=== PATIENT | female | born 1950 | race Caucasian/White ===

== ENCOUNTER 2017-05-05 08:29 | Outpatient (CLI) | payer OTHER ==
[2017-05-05 10:51] LABS: #Eosinphils 0.1 thou/uL (0.0-0.7); #Lymphocytes 1.3 thou/uL (1.20-3.40); #Monocytes 0.5 thou/uL (0.11-0.59); %Basophils 0.8 % (0.0-1.0); %Eosinophils 2.5 % (0.0-10.0); %Lymphocytes 21.9 % (21.0-51.0); %Monocytes 8.9 % (0.0-10.0); Hematocrit 43.4 % (36.0-47.0); Mean Platelet Volume 6.4 fL (7.4-10.4); Red Blood Cell (RBC) Count 4.92 mill/uL (4.20-5.40)
[2017-05-05 11:00] LABS: PTT 28.4 SEC (22.9-36.1); Prothrombin Time 12.7 SEC (12.0-14.7)
[2017-05-05 11:17] LABS: Anion Gap 10 mmol/L (10-20); BUN (Urea Nitrogen) 14 mg/dL (9.8-20.1); Calc. Creatinine Clearance 0 mL/min (70-130); Calcium 9.5 mg/dL (7.8-10.44); Carbon Dioxide 30 mmol/L (23-31); Chloride 106 mmol/L (98-107); Estimated GFR-MDRD 78
[2017-05-05 11:18] LABS: Bilirubin Negative (Negative); Blood, Urine Negative (Negative); Glucose, Urine (Dipstick) Negative (Negative); Ketone, Urine Negative (Negative); Nitrite Negative (Negative); Protein, Urine (Dipstick) Negative (Neg-Trace)
[2017-05-05 11:23] LABS: Bacteria/HPF None Seen HPF (None Seen); Hyaline Casts/LPF 0-3 HYALINE CAST LPF (0-3 Hyaline); Squamous Epithelial None Seen HPF (0-3); WBC/HPF None Seen HPF (0-3)
--- NOTE | 2017-05-05 11:53 | RAD ---
RADIOGRAPH CHEST 2 VIEWS: HISTORY: 67-year-old female for pre-operative clearance. FINDINGS: There is no air space density, pulmonary edema, pleural effusion, pneumothorax, or cardiomegaly. IMPRESSION: No acute cardiopulmonary findings. wilbert POS: [facility]
== END 2017-05-05 08:30 | disposition home or self-care (01) ==
LOC: LABBT 08:29
PROVIDERS: ATTEND Orthopaedic Surgery
DX: Z01.818 Encounter for other preprocedural examination (principal); M17.11 Unilateral primary osteoarthritis, right knee
CPT/HCPCS: 71020; 80048; 81001; 85025; 85610; 85730; 86850; 86900; 86901; 87081; 93005; 93010

== ENCOUNTER 2017-05-05 08:45 | Inpatient (IN) | payer OTHER ==
[2017-05-05 08:41] VITALS: BMI 28.7
[2017-05-12] MEDS ORDERED: Tranexamic Acid 1,000 MG/100 ML BAG ONE ×2 (06:47→09:41)
[2017-05-12] MEDS ORDERED: Vancomycin HCl 1.5 GM in Sodium Chloride 0.9% 250 ML 300 ML IVPB SCH (07:00)
[2017-05-12] MEDS ORDERED: Ondansetron HCl/PF 4 MG/2 ML Vial IVP PRN ×3 (07:14→10:31)
[2017-05-12] MEDS ORDERED: diphenhydrAMINE HCl 25 MG CAP PO PRN (07:14)
[2017-05-12] MEDS ORDERED: Zolpidem Tartrate 5 MG TAB PO PRN ×2 (07:14→08:00)
[2017-05-12] MEDS ORDERED: Acetaminophen 325 MG TAB PO PRN (07:14)
[2017-05-12] MEDS ORDERED: HYDROcodone/Acetaminophen 10/325 mg Tablet PO PRN ×4 (07:14→08:00)
[2017-05-12] MEDS ORDERED: Promethazine HCl 25 MG/ML VIAL IM PRN ×3 (07:14→10:31)
[2017-05-12] MEDS ORDERED: traMADol HCl 50 MG TAB PO PRN ×3 (07:14→08:00)
[2017-05-12] MEDS ORDERED: Fentanyl 100 MCG/2 ML VIAL SLOW IVP PRN ×3 (07:14→08:01)
[2017-05-12] MEDS ORDERED: VENLAFAXINE HCL PO SCH (07:15)
[2017-05-12] MEDS ORDERED: CETIRIZINE HCL PO PRN (07:15)
[2017-05-12] MEDS ORDERED: Tranexamic Acid 1,000 MG in Sodium Chloride 0.9% 100 ML IVPB SCH (07:15)
[2017-05-12] MEDS ORDERED: PSEUDOEPHEDRINE PO PRN (07:15)
[2017-05-12] MEDS ORDERED: Midazolam HCl 2 mg/2 ml Vial ONE (07:21)
[2017-05-12] MEDS ORDERED: Loratadine/Pseudoephedrine 10/240 mg Tablet PO PRN (07:59)
[2017-05-12] MEDS ORDERED: Ropivacaine HCl/PF 250 ML in Premix Bag 1 BAG NERVE BLCK SCH (08:00)
[2017-05-12] MEDS ORDERED: Ondansetron HCl/PF 4 MG/2 ML Vial ONE ×2 (08:07→08:23)
[2017-05-12] MEDS ORDERED: Metoclopramide HCl 10 MG/2 ML VIAL ONE (08:23)
[2017-05-12] MEDS ORDERED: Propofol 200 MG/20 ML VIAL ONE (08:23)
[2017-05-12] MEDS ORDERED: Dexamethasone 20 MG/5 ML VIAL ONE (08:23)
[2017-05-12] MEDS ORDERED: Lidocaine 1% PF 5 ML VIAL ONE (08:23)
[2017-05-12] MEDS ORDERED: OMEPRAZOLE MAGNESIUM PO SCH (09:00)
[2017-05-12] MEDS ORDERED: Non-Formulary Item 1 EACH (Cholecalciferol (Vitamin D3) [Vitamin D3] 2,000 UNIT) PO SCH (09:00)
[2017-05-12] MEDS ORDERED: Fentanyl 100 MCG/2 ML VIAL ONE ×2 (09:53→10:21)
[2017-05-12] MEDS ORDERED: Ropivacaine 0.5% HCl/PF (150 MG/30 ML VIAL) ONE (09:57)
--- NOTE | 2017-05-12 09:59 | OP ---
PREOPERATIVE DIAGNOSIS: Degenerative joint disease of the right knee. 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 SURGEON: Henry Herrera M.D. [employer]ER: Dr. Cobb. BLOOD LOSS: Minimal. SPECIMEN: None. DRAINS: None. COMPLICATIONS: None. TOURNIQUET TIME: 50 minutes. IMPLANTS USED: [place] [employer] 4 femur, 3 tibia, 9 mm CSX3 polyethylene, A29 patella. PROCEDURE IN DETAIL: After informed consent was obtained in the preoperative holding area. The pat ient was taken to the operative suite where general anesthesia was induced. Once adequate level of general anesthesia was obtained, the patient was positioned and a well-padded tourniquet was placed around the right proximal thigh. The right lower extremity was then prepped and draped in the usual sterile fashion. Prior to exsanguination, a time out was called and all members of the surgical te am agreed upon site, surgeon, and patient. The extremity was then exsanguinated and the tourniquet was raised. A midline longitudinal incision was then made directly over the patella extending two f ingerbreadths above the superior pole of the patella and two fingerbreadths inferior to the inferior patellar pole of the patella. Deeper subcutaneous layers were dissected sharply and local bleeding was controlled with Bovie electrocautery. A quad tendon longitudinal split was then made sharply a nd a median parapatellar arthrotomy was carried out both sharp and with Bovie electrocautery, tamera d down to one fingerbreadth medial to the tibial tubercle. The knee was then placed into flexion an d the patella was everted nicely, and a copious fat pad ectomy was performed allowing for greater ex posure of the tibia. The computer-assisted distal femoral fiducial was then placed and pinned firml y, and the distal femoral cutting guide was pinned firmly into place. The oscillating saw was then used to remove the appropriate amount of bone. The 4-in-1 cutting block was then placed on the dist al femur and the oscillating saw was used to remove the appropriate amount of bone off of the anteri or, posterior, and chamfer cuts. After completion of bone cuts, the anterior cruciate ligament was resected sharply and the posterior cruciate ligament retractor was placed and the tibia was subluxed for better exposure. Partial meniscectomies were carried out, and the tibial computer-assisted fid ucial was pinned, and the cutting guide was placed. Oscillating saw was then used to remove the bon e with Hohmann retractors used to take care and protect the collateral ligaments. After the tibial resection was performed, a laminar oxide furnace tender was placed in between the freshened bone cuts. The knee placed at 90 degrees and further bilateral meniscectomies were carried out, and the curved osteotom e and curettage was used to remove any excess bone spurs in the posterior compartment. Exparel was then injected into the posterior capsule, beto-articular synovia, pre-patella synovia, and musculatu re surrounding the capsule. The trial femoral component, tibial baseplate were placed with the appr opriate polyethylene trial insert with an appropriate polyethylene spacer and patellar button. The knee was taken through full range of motion with flexion and extension from 0-90 degrees and patella r broach squarely in the trochlea without any squinting or subluxation noted. The knee was also sta ble to varus and valgus stressing at 0, 15, 45, and 90 degrees of flexion. The drawer was negative. All trial components were then removed and the keel punch was used to provide the appropriate defe ct in the tibia with a mallet. The freshened bone cuts were copiously irrigated with pulsatile lava ge of about 1-1/2 liters to remove all excess debris. The freshened bone cuts were then dried and w ith suction and lap sponge. The knee was placed in flexion and retractors were placed to provide ac cess to all bone cuts. Tobramycin impregnated methyl methacrylate cement was then placed on the dorian shened bone cuts and implants which were malleted firmly into place. Curettage and Arthur elevators were used to remove any excess bone cement. The knee was placed into full extension and the patella r button was placed under compression, and the cement was allowed to cure. Once completed, the comp onents were again taken through full range of motion and copious irrigation of the knee was carried out with another liter of normal saline. All components were inspected fully with full range of mot ion and varus and valgus stressing. There was no laxity noted and full extension was observed clinic ally. Primary closure was accomplished with #2 interrupted Vicryl stitch of the arthrotomy defect. This was oversewn with a #2 running Quill barbed stitch. The gravitational platelet system was the n injected into the arthrotomy prior to closure. The subcutaneous layer was then closed with a runn ing 0 barbed Monocryl stitch and skin closure accomplished with a running subcuticular 3-0 Monocryl barbed Quill stitch and augmented with cement on the skin. Tourniquet was lowered. Good spontaneou s return of distal pulses was noted clinically and a sterile dressing was applied to the incision. The procedure was terminated without any complications. The patient was awakened in the operative s uite and the tourniquet was removed, and the patient was taken to the recovery room in stable condit ion.
[2017-05-12] MEDS ORDERED: Ketorolac Tromethamine 30 MG/ML VIAL ONE (10:24)
[2017-05-12] MEDS ORDERED: Ketorolac Tromethamine 30 MG/ML VIAL IVP PRN (10:31)
[2017-05-12] MEDS ORDERED: Promethazine HCl 25 MG/ML VIAL SLOW IVP PRN (10:31)
--- NOTE | 2017-05-12 10:32 | RAD ---
TWO VIEWS RIGHT KNEE: Date: 05-12-17 History: Post op total knee replacement. FINDINGS: There are post-surgical changes related to right total knee prosthesis. No hardware complication is seen. There is no fracture or dislocation. Subcutaneous emphysema and edema are seen about the knee. IMPRESSION: Post-surgical changes related to recent right total knee replacement. POS: [facility]
[2017-05-12] MEDS ORDERED: Fentanyl 20 MCG/ML 250 ML ONE (10:58)
[2017-05-12] MEDS: Aspirin 325 MG TAB PO SCH ×2 (12:52→19:14)
[2017-05-12] MEDS: Sodium Chloride 0.9% 1,000 ML IV SCH ×2 (12:52→17:01)
--- NOTE | 2017-05-12 13:36 | PDOC.PN ---
- Subjective Encounter Start Date: 05/12/17 Encounter Start Time: 13:34 Pt seen for management of medical comorbidities, including hypertension. Denies chest pain, shortness of breath, fevers or chills. No nausea or vomiting. - Objective MAR Reviewed: Yes Vital Signs & Weight: Vital Signs (12 hours) Temp Pulse Resp BP Pulse Ox 05/12/17 13:29 97.7 F 78 16 157/91 H 98 Weight Weight 178 lb I&O: 05/11/17 05/12/17 05/13/17 06:59 06:59 06:59 Output Total 300 Balance -300 Phys Exam - Physical Examination Constitutional: NAD HEENT: moist MMs Neck: supple Respiratory: clear to auscultation bilateral Cardiovascular: RRR Gastrointestinal: soft Musculoskeletal: pulses present s/p R knee surgery Neurological: moves all 4 limbs Psychiatric: normal affect Skin: no rash Dx/Plan (1) HTN (hypertension) Code(s): I10 - ESSENTIAL (PRIMARY) HYPERTENSION Status: Chronic (2) Hot flashes Code(s): R23.2 - FLUSHING Status: Chronic (3) Osteoarthritis Code(s): M19.90 - UNSPECIFIED OSTEOARTHRITIS, UNSPECIFIED SITE Status: Chronic - Plan * . Monitor vital signs, titrate antihypertensives as needed. PRN IV hydralazine for BP spikes. Continue venlafaxine. s/p R knee surgery. DVT prophylaxis and pain management per orthopedic surgery. Review of Systems - Review of Systems Constitutional: negative: Fever, Chills, Sweats, Weakness, Malaise Respiratory: negative: Cough, Dry, Shortness of Breath, Hemoptysis, SOB with Excertion, Pleuritic Pain, Sputum, Wheezing Cardiovascular: negative: Chest Pain, Palpitations, Orthopnea, Paroxysmal Noc. Dyspnea, Edema, Light Headedness - Medications/Allergies Allergies/Adverse Reactions: Allergies Allergy/AdvReac Type Severity Reaction Status Date / Time adhesive tape Allergy blistering Verified 05/05/17 08:43 pravastatin Allergy myalgia Verified 05/05/17 09:05 Medications: Current Medications Acetaminophen (Tylenol) 650 mg PO Q4H PRN PRN Reason: GRANT/ T > 101F; Mild Pain (1-3) Hydrocodone Bitart/Acetaminophen ([place] 10/325) 1 tab PO Q4H PRN PRN Reason: Moderate Pain (4-6) Hydrocodone Bitart/Acetaminophen ([place] 10/325) 2 tab PO Q4H PRN PRN Reason: Severe Pain (7-10) Hydrocodone Bitart/Acetaminophen ([place] 10/325) 1 tab PO Q4H PRN PRN Reason: Pain (1-3) Hydrocodone Bitart/Acetaminophen ([place] 10/325) 2 tab PO Q4H PRN PRN Reason: PAIN (4-6) Aspirin (Aspirin) 325 mg PO BID [facility] Last Admin: 05/12/17 12:52 Dose: Not Given Benazepril HCl (Lotensin) 20 mg PO HS [facility] Cefazolin Sodium (Ancef) 2 gm SLOW IVP Q8H [facility] Stop: 05/12/17 22:46 Cholecalciferol (Vitamin D3) 2,000 units PO DAILY [facility] Last Admin: 05/12/17 12:52 Dose: Not Given Diphenhydramine HCl (Benadryl) 25 mg PO Q6H PRN PRN Reason: Itching Fentanyl (Sublimaze) 50 mcg SLOW IVP Q30MIN PRN PRN Reason: Moderate Pain (4-6) 2ND LINE Fentanyl (Sublimaze) 100 mcg SLOW IVP Q1H PRN PRN Reason: Severe Pain (7-10) 2ND LINE Fentanyl (Sublimaze) 50 mcg SLOW IVP Q1H PRN PRN Reason: .BREAKTHROUGH PAIN Ferrous Gluconate (Fergon) 324 mg PO BID [facility] Sodium Chloride (Normal Saline 0.9%) 1,000 mls @ 100 mls/hr IV .Q10H [facility] Last Admin: 05/12/17 12:52 Dose: Not Given Ropivacaine 250 ml/ Device 250 mls @ 10 mls/hr NERVE BLCK INF [facility] PRN Reason: As Directed Iron/Minerals/Multivitamins (Theragran M) 1 tab PO DAILY [facility] Ketorolac Tromethamine (Toradol) 30 mg IVP Q8HR [facility] Stop: 05/14/17 14:01 Loratadine/Pseudoephedrine Sulfate (Claritin-D 24 Hour) 1 tab PO DAILYPRN PRN PRN Reason: Allergies Non-Formulary Medication (Venlafaxine Hcl [Venlafaxine Hcl Er]) 1 cap PO Q2DAYS [facility] Ondansetron HCl (Zofran) 4 mg IVP Q6H PRN PRN Reason: Nausea/Vomiting Ondansetron HCl (Zofran) 4 mg IVP Q6H PRN PRN Reason: Nausea/Vomiting Pantoprazole Sodium (Protonix) 40 mg PO QAM [facility] Last Admin: 05/12/17 12:53 Dose: Not Given Promethazine HCl (Phenergan) 12.5 mg IM Q4H PRN PRN Reason: Nausea/Vomiting Promethazine HCl (Phenergan) 12.5 mg IM Q4H PRN PRN Reason: Nausea Senna/Docusate Sodium (Senokot S) 2 tab PO BID [facility] Sodium Chloride (Flush - Normal Saline) 10 ml IVF PRN PRN PRN Reason: Saline Flush Tramadol HCl (Ultram) 100 mg PO Q6H PRN PRN Reason: Mild Pain (1-3) 2ND LINE Tramadol HCl (Ultram) 50 mg PO Q6H PRN PRN Reason: Mild Pain (1-3) Tramadol HCl (Ultram) 100 mg PO Q6H PRN PRN Reason: Moderate Pain 4-6 Zolpidem Tartrate (Ambien) 5 mg PO HSPRN PRN PRN Reason: Insomnia Zolpidem Tartrate (Ambien) 5 mg PO HSPRN PRN PRN Reason: Insomnia
[2017-05-12] MEDS ORDERED: Ketorolac Tromethamine 30 MG/ML VIAL IVP SCH (14:00)
[2017-05-12] MEDS: Ketorolac Tromethamine 30 MG/ML VIAL IVP SCH ×2 (14:48→21:04)
[2017-05-12] MEDS ORDERED: Naloxone HCl 0.4 mg/ml Vial IV PRN (17:05)
[2017-05-12] MEDS ORDERED: Fentanyl 5000 MCG/250 ML CADD IV PRN (17:05)
[2017-05-13] MEDS: Sodium Chloride 0.9% 1,000 ML IV SCH ×2 (01:02→08:10)
[2017-05-13 05:50] LABS: Hematocrit 34.7 % (36.0-47.0); Mean Platelet Volume 6.1 fL (7.4-10.4); Red Blood Cell (RBC) Count 3.93 mill/uL (4.20-5.40); White Blood Cell (WBC) Count 8.5 thou/uL (4.8-10.8)
[2017-05-13] MEDS: Ketorolac Tromethamine 30 MG/ML VIAL IVP SCH ×3 (06:00→21:14)
[2017-05-13] MEDS: Aspirin 325 MG TAB PO SCH ×2 (07:48→21:09)
[2017-05-13] MEDS: Senokot S 8.6-50 MG TAB PO SCH ×2 (07:48→21:10)
[2017-05-13] MEDS: Multivitamin W/ Minerals 1 TAB PO SCH (07:48)
[2017-05-13] MEDS: Ferrous Gluconate 324 MG TAB PO SCH ×2 (07:48→21:09)
--- NOTE | 2017-05-13 10:13 | PDOC.PN ---
- Subjective Encounter Start Date: 05/13/17 Encounter Start Time: 07:50 -: old records requested/rev Patient seen and examined. No new complaints. No overnight events - Objective Resuscitation Status: Resuscitation Status FULL:Full Resuscitation MAR Reviewed: Yes Vital Signs & Weight: Vital Signs (12 hours) Temp Pulse Resp BP Pulse Ox 05/13/17 08:00 98.2 F 78 14 133/79 96 05/13/17 07:35 98.2 F 77 18 05/13/17 04:46 98.2 F 77 18 150/82 H 97 05/13/17 00:07 98.3 F 90 16 137/74 Weight Weight 178 lb I&O: 05/12/17 05/13/17 05/14/17 06:59 06:59 06:59 Intake Total 400 Output Total 1100 Balance -700 Result Diagrams: 05/13/17 05:41 Phys Exam - Physical Examination Constitutional: NAD HEENT: PERRLA, moist MMs, sclera anicteric Neck: no JVD, supple Respiratory: no wheezing, no rales, no rhonchi Cardiovascular: RRR, no significant murmur, no rub Gastrointestinal: soft, non-tender, no distention, positive bowel sounds Musculoskeletal: no edema, pulses present right knee with dressing Neurological: non-focal, normal sensation, moves all 4 limbs Psychiatric: normal affect, A&O x 3 Skin: no rash, normal turgor Dx/Plan (1) Status post total right knee replacement Code(s): Z96.651 - PRESENCE OF RIGHT ARTIFICIAL KNEE JOINT Status: Acute (2) HTN (hypertension) Code(s): I10 - ESSENTIAL (PRIMARY) HYPERTENSION Status: Chronic (3) Osteoarthritis Code(s): M19.90 - UNSPECIFIED OSTEOARTHRITIS, UNSPECIFIED SITE Status: Chronic (4) GERD (gastroesophageal reflux disease) Code(s): K21.9 - GASTRO-ESOPHAGEAL REFLUX DISEASE WITHOUT ESOPHAGITIS Status: Chronic (5) Anxiety and depression Code(s): F41.8 - OTHER SPECIFIED ANXIETY DISORDERS Status: Chronic - Plan cont current plan of care, plan discussed w/ family, PT/OT * continue aspirin for DVT prophyalxis * continue protonix for GI prophylaxis * Nerve block as per anesthesia * pain controlled * discussed with family * medication reviewed as below * symptomatic treatment * Code status- Full code * continue Ferrous sulfate * overall medically stable. Review of Systems - Review of Systems ENT: negative: Ear Pain, Ear Discharge, Nose Pain, Nose Discharge, Nose Congestion, Mouth Pain, Mouth Swelling, Throat Pain, Throat Swelling, Other Respiratory: negative: Cough, Dry, Shortness of Breath, Hemoptysis, SOB with Excertion, Pleuritic Pain, Sputum, Wheezing Cardiovascular: negative: Chest Pain, Palpitations, Orthopnea, Paroxysmal Noc. Dyspnea, Edema, Light Headedness, Other Gastrointestinal: negative: Nausea, Vomiting, Abdominal Pain, Diarrhea, Constipation, Melena, Hematochezia, Other Genitourinary: negative: Dysuria, Frequency, Incontinence, Hematuria, Retention , Other Musculoskeletal: negative: Neck Pain, Shoulder Pain, Arm Pain, Back Pain, Hand Pain, Leg Pain, Foot Pain, Other - Medications/Allergies Allergies/Adverse Reactions: Allergies Allergy/AdvReac Type Severity Reaction Status Date / Time adhesive tape Allergy blistering Verified 05/05/17 08:43 pravastatin Allergy myalgia Verified 05/05/17 09:05 Medications: Current Medications Acetaminophen (Tylenol) 650 mg PO Q4H PRN PRN Reason: GRANT/ T > 101F; Mild Pain (1-3) Last Admin: 05/12/17 19:14 Dose: 650 mg Aspirin (Aspirin) 325 mg PO BID [facility] Last Admin: 05/13/17 07:48 Dose: 325 mg Benazepril HCl (Lotensin) 20 mg PO HS [facility] Last Admin: 05/12/17 19:14 Dose: 20 mg Cholecalciferol (Vitamin D3) 2,000 units PO DAILY [facility] Last Admin: 05/13/17 07:47 Dose: 2,000 units Diphenhydramine HCl (Benadryl) 25 mg PO Q6H PRN PRN Reason: Itching Fentanyl (Fentanyl Cadd) 0 mcg IV INF PRN PRN Reason: Pain Ferrous Gluconate (Fergon) 324 mg PO BID [facility] Last Admin: 05/13/17 07:48 Dose: 324 mg Hydralazine HCl (Apresoline) 10 mg SLOW IVP Q6H PRN PRN Reason: SBP Greater Than 170 Sodium Chloride (Normal Saline 0.9%) 1,000 mls @ 100 mls/hr IV .Q10H [facility] Last Admin: 05/13/17 08:10 Dose: Not Given Ropivacaine 250 ml/ Device 250 mls @ 10 mls/hr NERVE BLCK INF [facility] PRN Reason: As Directed Last Admin: 05/13/17 10:03 Dose: 250 mls Iron/Minerals/Multivitamins (Theragran M) 1 tab PO DAILY [facility] Last Admin: 05/13/17 07:48 Dose: 1 tab Ketorolac Tromethamine (Toradol) 30 mg IVP Q8HR [facility] Stop: 05/14/17 14:01 Last Admin: 05/13/17 06:00 Dose: 30 mg Loratadine/Pseudoephedrine Sulfate (Claritin-D 24 Hour) 1 tab PO DAILYPRN PRN PRN Reason: Allergies Naloxone HCl (Narcan) 0.2 mg IV Q5MIN PRN PRN Reason: RR <8 or pt obtun/unarousable Ondansetron HCl (Zofran) 4 mg IVP Q6H PRN PRN Reason: Nausea/Vomiting Pantoprazole [facility] ([facility]ix) [facility] Last Admin: 05/13/17 07:48 Dose: 40 mg Promethazine HCl (Phenergan) 12.5 mg IM Q4H PRN PRN Reason: Nausea Senna/Docusate Sodium (Senokot S) 2 tab PO BID [facility] Last Admin: 05/13/17 07:48 Dose: 2 tab Sodium Chloride (Flush - Normal Saline) 10 ml IVF PRN PRN PRN Reason: Saline Flush Venlafaxine HCl (Effexor Xr) 37.5 mg PO Q48H [facility] Last Admin: 05/12/17 19:58 Dose: 37.5 mg Zolpidem Tartrate (Ambien) 5 mg PO HSPRN PRN PRN Reason: Insomnia
[2017-05-14] MEDS: Sodium Chloride 0.9% 1,000 ML IV SCH ×2 (02:25→09:28)
[2017-05-14 05:07] LABS: Hematocrit 39.7 % (36.0-47.0); Mean Platelet Volume 6.2 fL (7.4-10.4); Red Blood Cell (RBC) Count 4.37 mill/uL (4.20-5.40); White Blood Cell (WBC) Count 8.5 thou/uL (4.8-10.8)
[2017-05-14] MEDS: Ketorolac Tromethamine 30 MG/ML VIAL IVP SCH ×2 (06:31→14:05)
[2017-05-14] MEDS: Ferrous Gluconate 324 MG TAB PO SCH (09:30)
[2017-05-14] MEDS: Aspirin 325 MG TAB PO SCH (09:30)
[2017-05-14] MEDS: Multivitamin W/ Minerals 1 TAB PO SCH (09:30)
[2017-05-14] MEDS: Senokot S 8.6-50 MG TAB PO SCH (09:31)
--- NOTE | 2017-05-14 10:13 | PDOC.PN ---
- Subjective Encounter Start Date: 05/14/17 Encounter Start Time: 07:50 Patient seen and examined. No new complaints. No overnight events - Objective Resuscitation Status: Resuscitation Status FULL:Full Resuscitation MAR Reviewed: Yes Vital Signs & Weight: Vital Signs (12 hours) Temp Pulse Resp BP Pulse Ox 05/14/17 08:00 98.7 F 86 18 05/14/17 04:10 98.7 F 86 18 147/85 H 97 05/14/17 00:44 98.4 F 81 18 134/88 94 L Weight Admit Weight 178 lb Weight 178 lb I&O: 05/13/17 05/14/17 05/15/17 06:59 06:59 06:59 Intake Total 400 2760 Output Total 1100 4400 Balance -700 -1640 Result Diagrams: 05/14/17 04:50 Phys Exam - Physical Examination Constitutional: NAD HEENT: PERRLA, moist MMs, sclera anicteric Neck: no JVD, supple Respiratory: no wheezing, no rales, no rhonchi Cardiovascular: RRR, no significant murmur, no rub Gastrointestinal: soft, non-tender, no distention, positive bowel sounds Musculoskeletal: no edema, pulses present Neurological: non-focal, normal sensation, moves all 4 limbs Psychiatric: normal affect, A&O x 3 Skin: no rash, normal turgor Dx/Plan (1) Status post total right knee replacement Code(s): Z96.651 - PRESENCE OF RIGHT ARTIFICIAL KNEE JOINT Status: Acute (2) HTN (hypertension) Code(s): I10 - ESSENTIAL (PRIMARY) HYPERTENSION Status: Chronic (3) Osteoarthritis Code(s): M19.90 - UNSPECIFIED OSTEOARTHRITIS, UNSPECIFIED SITE Status: Chronic (4) GERD (gastroesophageal reflux disease) Code(s): K21.9 - GASTRO-ESOPHAGEAL REFLUX DISEASE WITHOUT ESOPHAGITIS Status: Chronic (5) Anxiety and depression Code(s): F41.8 - OTHER SPECIFIED ANXIETY DISORDERS Status: Chronic - Plan cont current plan of care, PT/OT * continue aspirin for DVT prophyalxis * continue protonix for GI prophylaxis * Nerve block as per anesthesia * pain controlled * discussed with family * medication reviewed as below * symptomatic treatment * Code status- Full code * continue Ferrous sulfate * overall medically stable. * plan for discharge today * will sign off.. Review of Systems - Review of Systems Respiratory: negative: Cough, Dry, Shortness of Breath, Hemoptysis, SOB with Excertion, Pleuritic Pain, Sputum, Wheezing Cardiovascular: negative: Chest Pain, Palpitations, Orthopnea, Paroxysmal Noc. Dyspnea, Edema, Light Headedness, Other Gastrointestinal: negative: Nausea, Vomiting, Abdominal Pain, Diarrhea, Constipation, Melena, Hematochezia, Other Genitourinary: negative: Dysuria, Frequency, Incontinence, Hematuria, Retention , Other Musculoskeletal: negative: Neck Pain, Shoulder Pain, Arm Pain, Back Pain, Hand Pain, Leg Pain, Foot Pain, Other - Medications/Allergies Allergies/Adverse Reactions: Allergies Allergy/AdvReac Type Severity Reaction Status Date / Time adhesive tape Allergy blistering Verified 05/05/17 08:43 pravastatin Allergy myalgia Verified 05/05/17 09:05 Medications: Current Medications Acetaminophen (Tylenol) 650 mg PO Q4H PRN PRN Reason: GRANT/ T > 101F; Mild Pain (1-3) Last Admin: 05/12/17 19:14 Dose: 650 mg Aspirin (Aspirin) 325 mg PO BID [facility] Last Admin: 05/14/17 09:30 Dose: 325 mg Benazepril HCl (Lotensin) 20 mg PO HS [facility] Last Admin: 05/13/17 21:09 Dose: 20 mg Cholecalciferol (Vitamin D3) 2,000 units PO DAILY [facility] Last Admin: 05/14/17 09:30 Dose: 2,000 units Diphenhydramine HCl (Benadryl) 25 mg PO Q6H PRN PRN Reason: Itching Fentanyl (Fentanyl Cadd) 0 mcg IV INF PRN PRN Reason: Pain Ferrous Gluconate (Fergon) 324 mg PO BID [facility] Last Admin: 05/14/17 09:30 Dose: 324 mg Hydralazine HCl (Apresoline) 10 mg SLOW IVP Q6H PRN PRN Reason: SBP Greater Than 170 Sodium Chloride (Normal Saline 0.9%) 1,000 mls @ 100 mls/hr IV .Q10H [facility] Last Admin: 05/14/17 09:28 Dose: Not Given Ropivacaine 250 ml/ Device 250 mls @ 10 mls/hr NERVE BLCK INF [facility] PRN Reason: As Directed Last Admin: 05/13/17 10:03 Dose: 250 mls Iron/Minerals/Multivitamins (Theragran M) 1 tab PO DAILY [facility] Last Admin: 05/14/17 09:30 Dose: 1 tab Ketorolac Tromethamine (Toradol) 30 mg IVP Q8HR [facility] Stop: 05/14/17 14:01 Last Admin: 05/14/17 06:31 Dose: 30 mg Loratadine/Pseudoephedrine Sulfate (Claritin-D 24 Hour) 1 tab PO DAILYPRN PRN PRN Reason: Allergies Naloxone HCl (Narcan) 0.2 mg IV Q5MIN PRN PRN Reason: RR <8 or pt obtun/unarousable Ondansetron HCl (Zofran) 4 mg IVP Q6H PRN PRN Reason: Nausea/Vomiting Pantoprazole Sodium (Protonix) 40 mg PO QAM [facility] Last Admin: 05/14/17 09:30 Dose: 40 mg Promethazine HCl (Phenergan) 12.5 mg IM Q4H PRN PRN Reason: Nausea Senna/Docusate Sodium (Senokot S) 2 tab PO BID [facility] Last Admin: 05/14/17 09:31 Dose: 2 tab Sodium Chloride (Flush - Normal Saline) 10 ml IVF PRN PRN PRN Reason: Saline Flush Venlafaxine HCl (Effexor Xr) 37.5 mg PO Q48H [facility] Last Admin: 05/12/17 19:58 Dose: 37.5 mg Zolpidem Tartrate (Ambien) 5 mg PO HSPRN PRN PRN Reason: Insomnia
--- NOTE | 2017-05-14 11:27 | DIS ---
DATE OF ADMISSION: 05/12/2017 DATE OF DISCHARGE: 05/14/2017 PRIMARY CARE PHYSICIAN: Judy Bustillo M.D. DISCHARGE DISPOSITION: Home. PRIMARY DISCHARGE DIAGNOSIS: Status post right total knee replacement. SECONDARY DISCHARGE DIAGNOSES: Anxiety and depression, gastroesophageal reflux disease, hypertensio n, and osteoarthritis. PRIMARY PROCEDURE/OPERATION: Right total knee replacement. RADIOLOGICAL INVESTIGATION: Knee x-ray. SIGNIFICANT LABORATORY DATA: Hemoglobin 0.7. DISCHARGE MEDICATIONS: Aspirin 325 mg p.o. b.i.d., benazepril 20 mg p.o. at bedtime, cetirizine one tablet p.o. daily p.r.n., vitamin D3 2000 units p.o. daily, venlafaxine ER 1 capsule p.o. every 2 d ays, omeprazole 20 mg p.o. daily. CONTRAINDICATIONS: None. CODE STATUS: FULL CODE. INPATIENT PERLITE GRINDER: Dr. Javier Figueroa was primary while in hospital. Sound Team was consulted for medical comanagement. ALLERGIES: PRAVASTATIN. DISCHARGE PLAN: Post hospital, the patient will follow up with Dr. Javier Figueroa on 06/10/2017 at 09 :15 a.m. The patient will make appointment with primary care physician in 1 week. HOSPITAL COURSE: A 67-year-old female with above-mentioned medical problem who was admitted by Dr. Javier Figueroa on 05/12/2017 for right total knee replacement which was done on that day without any c omplication. Postoperatively, a [facility] Team was consulted for medical comanagement. The patient's all medical problems remained stable. We continued patient's all home medication wh ile in hospital as well as on discharge, the patient was given aspirin for DVT prophylaxis. She req uired LOGISTICS INTERN pump for pain control. Overall, she did very well with that [facility] Protocol treatment and patient is planned for discharge by the primary team today. The patient is seen and examined at bedside today. Please see my progress note from today for furth er detail and we will sign off.
[2017-05-14] MEDS ORDERED: HYDROcodone/Acetaminophen 10/325 mg Tablet PO PRN ×2 (11:57)
[2017-05-14 15:46] VITALS: BP 148/82; TEMP 98.4
--- OUTSIDE RECORDS SUMMARY | 2017-05-18 11:16 | XMS | Clinical Summary ---
:1950 Author Organization [facility] Address [address] [place] [address] Phone Care Team Providers Name Role Phone , Primary Care Provider Unavailable Allergies Not on File Current Medications Not on file Active Problems Not on file Social History Tobacco Use Types Packs/Day Years Used Date Never Assessed Sex Assigned at Date Recorded Not on file Last Filed Vital Signs Not on file Plan of Treatment Not on file Results Not on filefrom Last 3 Months
== END 2017-05-14 15:51 | disposition home or self-care (01) | DRG 470 ==
LOC: SURG A 05-12 06:29 → SURG B 05-12 11:09
PROVIDERS: ADMIT Orthopaedic Surgery; ATTEND Orthopaedic Surgery
PROC: 0SRC0J9 Replacement of Right Knee Joint with Synthetic Substitute, Cemented, Open Approach (ICD-10-PCS; principal; 2017-05-12)
PROC: 3E0T3BZ Introduction of Anesthetic Agent into Peripheral Nerves and Plexi, Percutaneous Approach (ICD-10-PCS; 2017-05-12)
PROC: 8E0YXBZ Computer Assisted Procedure of Lower Extremity (ICD-10-PCS; 2017-05-12)
DX: M17.0 Bilateral primary osteoarthritis of knee (principal); I10 Essential (primary) hypertension; M12.261 Villonodular synovitis (pigmented), right knee; K21.9 Gastro-esophageal reflux disease without esophagitis; F32.9 Major depressive disorder, single episode, unspecified; F41.8 Other specified anxiety disorders; R23.2 Flushing; Z88.8 Allergy status to other drugs, medicaments and biological substances; Z90.13 Acquired absence of bilateral breasts and nipples; Z85.3 Personal history of malignant neoplasm of breast; Z80.0 Family history of malignant neoplasm of digestive organs; Z81.8 Family history of other mental and behavioral disorders; Z84.89 Family history of other specified conditions
CPT/HCPCS: 36415; 85027; 88305; C1713; C1776; G8978-GP-CK; G8979-GP-CI; J0131; J1100; J1885; J2001; J2250; J2405; J2704; J2765; J2795; J3010; J3370; J7050

== ENCOUNTER 2017-07-28 15:48 | Outpatient (CLI) | payer MEDICARE, OTHER ==
[2017-07-28 17:04] LABS: #Basophils 0.1 thou/uL (0.0-0.2); #Eosinphils 0.2 thou/uL (0.0-0.7); #Lymphocytes 1.9 thou/uL (1.20-3.40); #Monocytes 0.5 thou/uL (0.11-0.59); %Basophils 0.7 % (0.0-1.0); %Eosinophils 2.3 % (0.0-10.0); %Lymphocytes 24.7 % (21.0-51.0); %Monocytes 7.1 % (0.0-10.0); %Neutrophils 65.3 % (42.0-75.0); Hemoglobin 14.2 g/dL (12.0-16.0); Mean Corpuscular HGB CONC 32.9 g/dL (32.0-36.0); Mean Corpuscular Hemoglobin 28.8 pg (27.0-31.0); Mean Corpuscular Volume 87.4 fl (81.0-99.0); Mean Platelet Volume 6.1 fL (7.4-10.4); Platelet Count 356 thou/uL (130-400); Red Blood Cell (RBC) Count 4.93 mill/uL (4.20-5.40); White Blood Cell (WBC) Count 7.7 thou/uL (4.8-10.8)
[2017-07-28 17:06] LABS: Bilirubin Negative (Negative); Blood, Urine Small (Negative); Clarity CLEAR (Clear); Glucose, Urine (Dipstick) Negative (Negative); Leukocyte Trace (Negative); Nitrite Negative (Negative); Protein, Urine (Dipstick) Negative (Neg-Trace); Specific Gravity, Urine 1.023 (1.002-1.036)
[2017-07-28 17:07] LABS: Bacteria/HPF None Seen HPF (None Seen); Hyaline Casts/LPF 0-3 HYALINE CAST LPF (0-3 Hyaline); Pathc Cast-AUWi Flag 0.67 (0-2.49); Squamous Epithelial 0-3 HPF (0-3); WBC/HPF 0-3 HPF (0-3)
[2017-07-28 17:27] LABS: Anion Gap 13 mmol/L (10-20); BUN (Urea Nitrogen) 13 mg/dL (9.8-20.1); Calc. Creatinine Clearance 0 mL/min (70-130); Calcium 9.7 mg/dL (7.8-10.44); Carbon Dioxide 27 mmol/L (23-31); Chloride 105 mmol/L (98-107); Estimated GFR-MDRD 76; Glucose 113 mg/dL (80-115); Potassium 3.9 mmol/L (3.5-5.1); Sodium 141 mmol/L (136-145)
== END 2017-07-28 15:49 | disposition home or self-care (01) ==
LOC: LABBT 15:48
PROVIDERS: ATTEND Orthopaedic Surgery
DX: Z01.812 Encounter for preprocedural laboratory examination (principal); M17.11 Unilateral primary osteoarthritis, right knee
CPT/HCPCS: 80048; 81001; 85025; 85610; 86850; 86900; 86901; 87081

== ENCOUNTER 2017-08-04 05:33 | Inpatient (IN) | payer MEDICARE, OTHER ==
[2017-07-28 16:09] VITALS: BMI 27.9
[2017-08-04] MEDS ORDERED: Tranexamic Acid 1,000 MG/100 ML BAG ONE ×2 (05:53→08:37)
[2017-08-04] MEDS ORDERED: CEFAZOLIN/Water 2 GM/20 ML SYRINGE ONE (05:53)
[2017-08-04] MEDS ORDERED: Ondansetron HCl/PF 4 MG/2 ML Vial ONE ×2 (06:11→15:39)
[2017-08-04] MEDS ORDERED: Fentanyl 100 MCG/2 ML VIAL ONE ×5 (06:24→10:29)
[2017-08-04] MEDS ORDERED: Midazolam HCl 2 mg/2 ml Vial ONE (06:24)
[2017-08-04] MEDS ORDERED: Ondansetron HCl/PF 4 MG/2 ML Vial IVP PRN ×2 (07:01→07:42)
[2017-08-04] MEDS ORDERED: Zolpidem Tartrate 5 MG TAB PO PRN ×2 (07:01→07:09)
[2017-08-04] MEDS ORDERED: HYDROcodone/Acetaminophen 10/325 mg Tablet PO PRN ×2 (07:01→07:09)
[2017-08-04] MEDS ORDERED: Promethazine HCl 25 MG/ML VIAL IM PRN ×3 (07:01→07:42)
[2017-08-04] MEDS ORDERED: traMADol HCl 50 MG TAB PO PRN ×3 (07:01→07:09)
[2017-08-04] MEDS ORDERED: Ropivacaine HCl/PF 250 ML in Premix Bag 1 BAG NERVE BLCK SCH (07:01)
[2017-08-04] MEDS ORDERED: Ketorolac Tromethamine 30 MG/ML VIAL IVP PRN (07:01)
[2017-08-04] MEDS ORDERED: Fentanyl 100 MCG/2 ML VIAL IV PRN (07:03)
[2017-08-04] MEDS ORDERED: Fentanyl 100 MCG/2 ML VIAL SLOW IVP PRN (07:09)
[2017-08-04] MEDS ORDERED: Acetaminophen 325 MG TAB PO PRN (07:09)
[2017-08-04] MEDS ORDERED: diphenhydrAMINE 25 MG CAP PO PRN (07:09)
[2017-08-04] MEDS ORDERED: Tranexamic Acid 1,000 MG in Sodium Chloride 0.9% 100 ML IVPB SCH (07:15)
[2017-08-04] MEDS ORDERED: HYDROmorphone 2 MG/ML VIAL SLOW IVP PRN (07:42)
[2017-08-04] MEDS ORDERED: Promethazine HCl 25 MG/ML VIAL SLOW IVP PRN (07:42)
[2017-08-04] MEDS ORDERED: Loratadine/Pseudoephedrine 10/240 mg Tablet PO PRN (09:00)
[2017-08-04] MEDS ORDERED: HYDROmorphone 0.5 MG/0.5 ML SYRINGE ONE (09:29)
--- NOTE | 2017-08-04 09:45 | RAD ---
2 VIEWS LEFT KNEE: Date: 08/04/17 COMPARISON: None. HISTORY: Evaluate knee following arthroplasty. FINDINGS: There is postoperative gas in the prepatellar bursa and soft tissues adjacent to the left knee, consi stent with recent total knee arthroplasty. No evidence for hardware failure, fracture, or dislocation . IMPRESSION: Postoperative findings consistent with recent left total knee arthroplasty. POS: [facility]
[2017-08-04] MEDS ORDERED: Ketorolac Tromethamine 30 MG/ML VIAL ONE (10:10)
[2017-08-04] MEDS ORDERED: Morphine 4 MG/ML VIAL ONE (10:45)
--- NOTE | 2017-08-04 11:32 | OP ---
PREOPERATIVE DIAGNOSIS: Degenerative joint disease of left knee. POSTOPERATIVE DIAGNOSIS: Degenerative joint disease of left knee. SURGEON: Henry Herrera M.D. PATIENT RELATIONS LIAISON: Lavon Chavez PA-C. BLOOD LOSS: Minimal. SPECIMEN: None. DRAINS: None. COMPLICATIONS: None. TOURNIQUET TIME: 51 minutes. IMPLANTS USED: Noel Triathlon 4 femur, 3 tibia, 11 mm CSX3 polyethylene, and A29 patella. PROCEDURE IN DETAIL: After informed consent was obtained in the preoperative holding area. The danny ent was taken to the operative suite where general anesthesia was induced. Once adequate level of ge neral anesthesia was obtained, the patient was positioned and a well-padded tourniquet was placed sherrie und the left proximal thigh. The left lower extremity was then prepped and draped in the usual steri le fashion. Prior to exsanguination, a time out was called and all members of the surgical team agre ed upon site, surgeon, and patient. The extremity was then exsanguinated and the tourniquet was rais ed. A midline longitudinal incision was then made directly over the patella extending two fingerbrea dths above the superior pole of the patella and two fingerbreadths inferior to the inferior patellar pole of the patella. Deeper subcutaneous layers were dissected sharply and local bleeding was contro lled with Bovie electrocautery. A quad tendon longitudinal split was then made sharply and a median parapatellar arthrotomy was carried out both sharp and with Bovie electrocautery, carried down to one fingerbreadth medial to the tibial tubercle. The knee was then placed into flexion and the patella was everted nicely, and a copious fat pad ectomy was performed allowing for greater exposure of the t ibia. The computer-assisted distal femoral fiducial was then placed and pinned firmly, and the dista l femoral cutting guide was pinned firmly into place. The oscillating saw was then used to remove th e appropriate amount of bone. The 4-in-1 cutting block was then placed on the distal femur and the o scillating saw was used to remove the appropriate amount of bone off of the anterior, posterior, and chamfer cuts. After completion of bone cuts, the anterior cruciate ligament was resected sharply and the posterior cruciate ligament retractor was placed and the tibia was subluxed for better exposure. Partial meniscectomies were carried out, and the tibial computer-assisted fiducial was pinned, and the cutting guide was placed. Oscillating saw was then used to remove the bone with Hohmann retracto rs used to take care and protect the collateral ligaments. After the tibial resection was performed, a laminar prepared foods supervisor was placed in between the freshened bone cuts. The knee placed at 90 degrees and further bilateral meniscectomies were carried out, and the curved osteotome and curettage was used t o remove any excess bone spurs in the posterior compartment. Exparel was then injected into the post erior capsule, beto-articular synovia, pre-patella synovia, and musculature surrounding the capsule. The trial femoral component, tibial baseplate were placed with the appropriate polyethylene trial in sert with an appropriate polyethylene spacer and patellar button. The knee was taken through full ra nge of motion with flexion and extension from 0-90 degrees and patellar broach squarely in the trochl ea without any squinting or subluxation noted. The knee was also stable to varus and valgus stressin g at 0, 15, 45, and 90 degrees of flexion. The drawer was negative. All trial components were then removed and the keel punch was used to provide the appropriate defect in the tibia with a mallet. Th e freshened bone cuts were copiously irrigated with pulsatile lavage of about 1-1/2 liters to remove all excess debris. The freshened bone cuts were then dried and with suction and lap sponge. The kne e was placed in flexion and retractors were placed to provide access to all bone cuts. Tobramycin im pregnated methyl methacrylate cement was then placed on the freshened bone cuts and implants which we re malleted firmly into place. Curettage and Califon elevators were used to remove any excess bone jadon ent. The knee was placed into full extension and the patellar button was placed under compression, a nd the cement was allowed to cure. Once completed, the components were again taken through full rang e of motion and copious irrigation of the knee was carried out with another liter of normal saline. All components were inspected fully with full range of motion and varus and valgus stressing. There w as no laxity noted and full extension was observed clinically. Primary closure was accomplished with #2 interrupted Vicryl stitch of the arthrotomy defect. This was oversewn with a #2 running Quill ba rbed stitch. The gravitational platelet system was then injected into the arthrotomy prior to closur e. The subcutaneous layer was then closed with a running 0 barbed Monocryl stitch and skin closure a ccomplished with a running subcuticular 3-0 Monocryl barbed Quill stitch and augmented with cement on the skin. Tourniquet was lowered. Good spontaneous return of distal pulses was noted clinically an d a sterile dressing was applied to the incision. The procedure was terminated without any complicat ions. The patient was awakened in the operative suite and the tourniquet was removed, and the patien t was taken to the recovery room in stable condition.
[2017-08-04] MEDS: Amlodipine 5 MG TAB PO SCH (12:18)
[2017-08-04] MEDS: Sodium Chloride 0.9% 1,000 ML IV SCH (12:18)
[2017-08-04] MEDS: Senokot S 8.6-50 MG TAB PO SCH ×2 (12:19→21:33)
[2017-08-04] MEDS: Ferrous Gluconate 324 MG TAB PO SCH ×2 (12:19→21:32)
[2017-08-04] MEDS: Aspirin 325 MG TAB PO SCH ×2 (12:19→21:33)
[2017-08-04] MEDS: Multivitamin W/ Minerals 1 TAB PO SCH (12:19)
[2017-08-04] MEDS: HYDROcodone/Acetaminophen 10/325 mg Tablet PO PRN (13:19)
[2017-08-04] MEDS: CEFAZOLIN/Water 2 GM/20 ML SYRINGE SLOW IVP SCH ×2 (14:18→21:42)
[2017-08-04] MEDS ORDERED: Ropivacaine 0.2% HCl/PF (40 MG/20 ML VIAL) ONE (14:58)
[2017-08-04] MEDS ORDERED: Ropivacaine 0.5% HCl/PF (150 MG/30 ML VIAL) ONE (14:58)
[2017-08-04] MEDS ORDERED: Dexamethasone 20 MG/5 ML VIAL ONE (15:39)
[2017-08-04] MEDS ORDERED: PHENYLEPHRINE-NS 100 MCG/ML 10 ML SYRINGE ONE (15:39)
[2017-08-04] MEDS ORDERED: ePHEDrine/0.9% NaCl/PF SYRINGE 50 mg/10 ml ONE (15:39)
[2017-08-04] MEDS ORDERED: Propofol 200 MG/20 ML VIAL ONE (15:39)
[2017-08-04] MEDS: Ondansetron HCl/PF 4 MG/2 ML Vial IVP PRN (17:49)
--- NOTE | 2017-08-04 21:08 | PDOC.PN ---
- Subjective Encounter Start Date: 08/04/17 Encounter Start Time: 21:00 Subjective: Consulted for med mgmt s/p L TKA for severe DJD. Hx, Labs and X-rays -: reviewed. No specific complaints currently. - Objective MAR Reviewed: Yes Vital Signs & Weight: Vital Signs (12 hours) Temp Pulse Resp BP Pulse Ox 08/04/17 20:00 98.0 F 84 18 149/89 H 99 08/04/17 12:18 90 08/04/17 11:36 97.7 F 90 18 145/84 H 99 Weight Weight 173 lb Additional Labs: Laboratory Tests 07/28/17 07/28/17 16:58 16:58 WBC 7.7 Hgb 14.2 Hct 43.1 Plt Count 356 Sodium 141 Potassium 3.9 Chloride 105 Carbon Dioxide 27 Anion Gap 13 BUN 13 Creatinine 0.76 Estimated GFR (MDRD) 76 Glucose 113 Calcium 9.7 Radiology Reviewed by me: Yes (X-ray L knee - postop changes consistent with TKA ) Phys Exam - Physical Examination Constitutional: NAD HEENT: PERRLA, oral pharynx no lesions Neck: no JVD, supple Respiratory: no wheezing, clear to auscultation bilateral Cardiovascular: RRR Gastrointestinal: soft, non-tender, no distention, positive bowel sounds L knee with edema and surgical dressings in place Musculoskeletal: pulses present, edema present Neurological: moves all 4 limbs Psychiatric: A&O x 3 Skin: normal turgor, cap refill <2 seconds Dx/Plan (1) HTN (hypertension) Code(s): I10 - ESSENTIAL (PRIMARY) HYPERTENSION Status: Chronic Qualifiers: Hypertension type: essential hypertension Qualified Code(s): I10 - Essential (primary) hypertension Comment: Resume Norvasc 5mg daily and Lotensin 20mg daily (2) Status post total knee replacement, left Code(s): Z96.652 - PRESENCE OF LEFT ARTIFICIAL KNEE JOINT Status: Acute Comment: Pain control, ASA 325mg BID, Joint U protocol (3) Anxiety and depression Code(s): F41.8 - OTHER SPECIFIED ANXIETY DISORDERS Status: Chronic Comment: Continue Effexor XR (4) GERD (gastroesophageal reflux disease) Code(s): K21.9 - GASTRO-ESOPHAGEAL REFLUX DISEASE WITHOUT ESOPHAGITIS Status: Chronic Comment: Continue Protonix 40mg daily (5) Osteoarthritis Code(s): M19.90 - UNSPECIFIED OSTEOARTHRITIS, UNSPECIFIED SITE Status: Chronic Qualifiers: Osteoarthritis location: knee Comment: See above, s/p L TKA - Plan PT/OT, social media marketer, incentive spirometry, out of bed/ambulate, DVT proph w/ SCDs Stable overall -: Continue ASA 325mg BID -: Pain control per Joint U protocol -: Continue Norvasc and Lotensin -: PT/OT for mobilization * AM lab: CBC
[2017-08-05] MEDS: Sodium Chloride 0.9% 1,000 ML IV SCH ×2 (01:51→04:50)
[2017-08-05] MEDS: Fentanyl 100 MCG/2 ML VIAL SLOW IVP PRN ×3 (05:08→09:21)
[2017-08-05] MEDS: Ondansetron HCl/PF 4 MG/2 ML Vial IVP PRN (05:17)
[2017-08-05 05:41] LABS: Hemoglobin 11.6 g/dL (12.0-16.0); Mean Corpuscular HGB CONC 32.1 g/dL (32.0-36.0); Mean Corpuscular Hemoglobin 28.4 pg (27.0-31.0); Mean Corpuscular Volume 88.6 fl (81.0-99.0); Mean Platelet Volume 6.1 fL (7.4-10.4); Platelet Count 280 thou/uL (130-400); RBC Distribution Width 12.1 % (11.5-14.5); Red Blood Cell (RBC) Count 4.09 mill/uL (4.20-5.40)
[2017-08-05] MEDS: HYDROcodone/Acetaminophen 10/325 mg Tablet PO PRN ×3 (06:02→14:54)
[2017-08-05] MEDS: Senokot S 8.6-50 MG TAB PO SCH (08:16)
[2017-08-05] MEDS: Ferrous Gluconate 324 MG TAB PO SCH (08:17)
[2017-08-05] MEDS: Multivitamin W/ Minerals 1 TAB PO SCH (08:17)
[2017-08-05] MEDS: Aspirin 325 MG TAB PO SCH (08:17)
[2017-08-05] MEDS: Amlodipine 5 MG TAB PO SCH (08:17)
[2017-08-05] MEDS ORDERED: Ropivacaine 0.2% 550 ML 550 ML NERVE BLCK SCH (11:04)
[2017-08-05 12:53] VITALS: BP 147/79; TEMP 98.1
== END 2017-08-05 16:54 | disposition home or self-care (01) | DRG 470 ==
LOC: SDC 05:33 → SJJU 07:09 → EDSTATUS 16:00
PROVIDERS: ADMIT Orthopaedic Surgery; ATTEND Orthopaedic Surgery
PROC: 0SRD0J9 Replacement of Left Knee Joint with Synthetic Substitute, Cemented, Open Approach (ICD-10-PCS; principal; 2017-08-04)
PROC: 3E0T3BZ Introduction of Anesthetic Agent into Peripheral Nerves and Plexi, Percutaneous Approach (ICD-10-PCS; 2017-08-04)
DX: M17.12 Unilateral primary osteoarthritis, left knee (principal); E78.00 Pure hypercholesterolemia, unspecified; I10 Essential (primary) hypertension; Z85.3 Personal history of malignant neoplasm of breast; Z90.13 Acquired absence of bilateral breasts and nipples; K21.9 Gastro-esophageal reflux disease without esophagitis; M85.80 Other specified disorders of bone density and structure, unspecified site; Z79.82 Long term (current) use of aspirin; Z96.651 Presence of right artificial knee joint; F41.9 Anxiety disorder, unspecified; F32.9 Major depressive disorder, single episode, unspecified
CPT/HCPCS: 36415; 85027; A4306; C1713; C1776; G8978-GP-CM; G8979-GP-CI; J0131; J1100; J1170; J1885; J2250; J2270; J2405; J2704; J2795; J3010; J3370

== ENCOUNTER 2018-01-30 14:01 | Emergency (ER) | payer MEDICARE, OTHER ==
[2018-01-30] MEDS ORDERED: Ketorolac Tromethamine 30 MG/ML VIAL ONE (14:21)
--- NOTE | 2018-01-30 14:47 | RAD ---
RIGHT ANKLE 3 VIEWS: INDICATION: Pain. FINDINGS: No fracture or dislocation. Mild osteophytosis is present. There is incidentally imaged hardware of the 1st and 2nd rays. IMPRESSION: No acute osseous abnormality of the right ankle. POS: ARUNA
--- NOTE | 2018-01-30 15:03 | RAD ---
THREE VIEWS RIGHT FOOT: INDICATION: Pain. Fall with injury. FINDINGS: There are metallic screws of the 1st and 2nd rays. There is no fracture or dislocation. Scattered o steoarthritis is present. There is chronic malalignment of the 1st ray. IMPRESSION: Postoperative right foot without acute osseous abnormality visualized. POS: ARUNA
== END 2018-01-30 14:52 | disposition home or self-care (01) ==
LOC: SCSER 14:01
DX: S93.401A Sprain of unspecified ligament of right ankle, initial encounter (principal); W01.0XXA Fall on same level from slipping, tripping and stumbling without subsequent striking against object, initial encounter
CPT/HCPCS: 96372; J1885

== ENCOUNTER 2019-07-07 11:21 | Day surgery (SDC) | payer MEDICARE, OTHER ==
[2019-07-06 10:55] VITALS: BMI 27.9
--- NOTE | 2019-07-07 14:23 | OP ---
DATE OF PROCEDURE: 07/07/2019 PROCEDURE PERFORMED: Colonoscopy. PREPROCEDURE DIAGNOSIS: History of colon polyps, last colonoscopy in [place], [place] in 2013. POSTPROCEDURE DIAGNOSES: 1. Exam to cecum; good bowel preparation. 2. Mild right colonic diverticulosis. 3. Small internal hemorrhoids. 4. Otherwise, normal colonoscopy, no polyp seen. DESCRIPTION OF PROCEDURE: Written informed consent was obtained. The patient was brought to the endoscopy suite. Total intravenous anesthesia was administered by [facility] and [facility]. The patient was placed in left lateral decubitus position. A digital rectal exam revealed a small perianal skin tag. A Pentax video colonoscope was then inserted through the anal canal and advanced under direct visualization to the cecum. Position in the cecum was verified by clear identification of the appendiceal orifice and the ileocecal valve. The quality of the bowel preparation was good. Each colon segment was examined carefully as the colonoscope was slowly withdrawn from the cecum. Vascular pattern and haustral folds appeared normal. Occasional [id number] diverticular orifices were noted in the right colon. There was no evidence of diverticulitis or bleeding. No polyp or neoplasm was identified. In the rectum, a retroflexed view demonstrated small internal hemorrhoids that were not bleeding. The colon was decompressed as the colonoscope was completely removed from the patient. She was transferred to the Day Stay surgery area for postprocedure monitoring. There were no immediate complications. RECOMMENDATIONS: 1. Resume previous diet and previous medications. 2. Repeat colonoscopy in 5 years for purposes of surveillance. 3. Follow up with Gastroenterology as needed. Job ID: [id number]
[2019-07-07] MEDS ORDERED: PROPOFOL 200 MG/20 ML VIAL ONE (14:36)
== END 2019-07-07 14:00 | disposition home or self-care (01) ==
LOC: SDC 11:21
PROVIDERS: ATTEND Internal Medicine Gastroenterology
PROC: 0DJD8ZZ Inspection of Lower Intestinal Tract, Via Natural or Artificial Opening Endoscopic (ICD-10-PCS; principal; 2019-07-07)
DX: Z12.11 Encounter for screening for malignant neoplasm of colon (principal); K57.30 Diverticulosis of large intestine without perforation or abscess without bleeding; K64.8 Other hemorrhoids; K64.4 Residual hemorrhoidal skin tags; I10 Essential (primary) hypertension; K21.9 Gastro-esophageal reflux disease without esophagitis; G89.29 Other chronic pain; M54.9 Dorsalgia, unspecified; Z86.010 Personal history of colon polyps; Z79.899 Other long term (current) drug therapy; Z88.8 Allergy status to other drugs, medicaments and biological substances; Z91.048 Other nonmedicinal substance allergy status
CPT/HCPCS: J2704

== ENCOUNTER 2020-06-28 14:01 | Outpatient (CLI) | payer MEDICARE, OTHER ==
--- NOTE | 2020-06-28 14:23 | SJPRAD ---
PA AND LATERAL VIEWS OF THE CHEST: 06/28/20 HISTORY: Exposure to COVID. Test is pending. COMPARISON: 05/05/17. FINDINGS: There is continued elevation of the right hemidiaphragm. The heart size is normal. The lungs are expa nded without lobar consolidation, pneumothoraces, or pleural effusions. IMPRESSION: No acute process. Plain radiographs can be falsely negative in the setting of COVID-19 pneumonia. POS: AH
== END 2020-06-28 14:02 | disposition home or self-care (01) ==
LOC: SCSRAD 14:01
PROVIDERS: ATTEND Nurse Practitioner Family
DX: U07.1 COVID-19 (principal)
CPT/HCPCS: 87635; U0003

== ENCOUNTER 2020-08-02 08:27 | Outpatient (CLI) | payer MEDICARE, OTHER ==
--- NOTE | 2020-08-02 09:09 | BD ---
EXAM: Bone densitometry using DEXA HISTORY: 70 yo female. Screening for postmenopausal osteoporosis FINDINGS: L1--bone mineral density 0.757 g/sq cm; T score -2.1 ; Z score -0.4 L2--bone mineral density 0.794 g/sq cm; T score -2.1 ; Z score -0.2 L3--bone mineral density 0.751 g/sq cm; T score -3.0 ; Z score -1.0 L4--bone mineral density 0.867 g/sq cm; T score -1.8 ; Z score 0.8 Total L1-L4--bone mineral density 0.797 g/sq cm; T score -2.3 ; Z score -0.3 Left femoral neck--bone mineral density0.663; T score -1.7 ; Z score 0.0 Total proximal left femur--bone mineral density 0.966; T score 0.2 ; Z score 1.6 There has been an interval reduction of 0.4% in the BMD of the lumbar spine and a improvement of 5. 2% in the BMD of the proximal femur since the previous study of 02/17/2017. The 10 year fracture risk for a major osteoporotic fracture is 9.6% and for a hip fracture is 1.3%. IMPRESSION: Osteopenia
== END 2020-08-02 08:28 | disposition home or self-care (01) ==
LOC: BICMAMMO 08:27
PROVIDERS: ATTEND Internal Medicine
DX: Z13.820 Encounter for screening for osteoporosis (principal); M85.89 Other specified disorders of bone density and structure, multiple sites; Z78.0 Asymptomatic menopausal state
CPT/HCPCS: 77080

== ENCOUNTER 2021-06-03 13:16 | Outpatient (CLI) | payer MEDICARE, OTHER | END 2021-06-03 13:17 | disposition home or self-care (01) | LOC: BICRAD 13:16 | PROVIDERS: ATTEND Internal Medicine | DX: M54.2 Cervicalgia (principal); M47.812 Spondylosis without myelopathy or radiculopathy, cervical region | CPT/HCPCS: 72040 ==

== ENCOUNTER 2021-07-02 08:35 | Outpatient (CLI) | payer MEDICARE, OTHER | END 2021-07-02 08:36 | disposition home or self-care (01) | LOC: BICMRI 08:35 | PROVIDERS: ATTEND Internal Medicine | DX: M50.30 Other cervical disc degeneration, unspecified cervical region (principal); M47.816 Spondylosis without myelopathy or radiculopathy, lumbar region; M50.322 Other cervical disc degeneration at C5-C6 level; R93.7 Abnormal findings on diagnostic imaging of other parts of musculoskeletal system | CPT/HCPCS: 72141 ==

== ENCOUNTER 2021-11-18 12:55 | Outpatient (CLI) | payer MEDICARE, OTHER | END 2021-11-18 12:56 | disposition home or self-care (01) | LOC: BICRAD 12:55 | PROVIDERS: ATTEND Internal Medicine | DX: M79.644 Pain in right finger(s) (principal) ==

== ENCOUNTER 2022-08-26 09:32 | Outpatient (CLI) | payer MEDICARE, OTHER | END 2022-08-26 09:33 | disposition home or self-care (01) | LOC: BICMAMMO 09:32 | PROVIDERS: ATTEND Internal Medicine | DX: M85.852 Other specified disorders of bone density and structure, left thigh (principal); M85.851 Other specified disorders of bone density and structure, right thigh; Z78.0 Asymptomatic menopausal state | CPT/HCPCS: 77080 ==

== ENCOUNTER 2022-09-22 08:45 | Outpatient (CLI) | payer MEDICARE, OTHER | END 2022-09-22 08:46 | disposition home or self-care (01) | LOC: BICRAD 08:45 | PROVIDERS: ATTEND Internal Medicine | DX: M79.672 Pain in left foot (principal) ==

== ENCOUNTER 2023-05-21 09:29 | Outpatient (CLI) | payer MEDICARE, OTHER | END 2023-05-21 09:30 | disposition home or self-care (01) | LOC: BICRAD 09:29 | PROVIDERS: ATTEND Internal Medicine | DX: M54.50 Low back pain, unspecified (principal); M25.551 Pain in right hip; M47.816 Spondylosis without myelopathy or radiculopathy, lumbar region; M47.817 Spondylosis without myelopathy or radiculopathy, lumbosacral region; E78.5 Hyperlipidemia, unspecified; M81.0 Age-related osteoporosis without current pathological fracture; Z92.29 Personal history of other drug therapy | CPT/HCPCS: 36415; 72100; 80053; 80061; 82306; 84443; 85025 ==

== ENCOUNTER 2023-06-04 14:55 | Outpatient (CLI) | payer MEDICARE, OTHER | END 2023-06-04 14:56 | disposition home or self-care (01) | LOC: SCSMRI 14:55 | PROVIDERS: ATTEND Internal Medicine | DX: M43.17 Spondylolisthesis, lumbosacral region (principal); M47.817 Spondylosis without myelopathy or radiculopathy, lumbosacral region | CPT/HCPCS: 72148 ==

== ENCOUNTER 2023-06-15 08:33 | Outpatient (CLI) | payer MEDICARE, OTHER | END 2023-06-15 08:34 | disposition home or self-care (01) | LOC: BICRAD 08:33 | PROVIDERS: ATTEND Internal Medicine | DX: M43.17 Spondylolisthesis, lumbosacral region (principal) | CPT/HCPCS: 72100 ==

== ENCOUNTER 2024-07-29 08:13 | Outpatient (CLI) | payer MEDICARE, OTHER | END 2024-07-29 08:14 | disposition home or self-care (01) | LOC: BICMAMMO 08:13 | PROVIDERS: ATTEND Internal Medicine | DX: M81.0 Age-related osteoporosis without current pathological fracture (principal); M85.89 Other specified disorders of bone density and structure, multiple sites | CPT/HCPCS: 77080 ==